=== PATIENT | male | born 1985 | race Caucasian/White ===

== ENCOUNTER 2016-05-30 16:34 | Emergency (ER) | payer OTHER ==
[2016-05-30 16:47] VITALS: BP 140/80; PULSE 80; RESP 15; TEMP 97.9; O2SAT 95
--- NOTE | 2016-05-30 17:01 | UCPHY ---
H & P Time Seen by Provider: 05/30/16 16:59 Patient Type: New HPI/ROS: CHIEF COMPLAINT: eye pain HISTORY OF PRESENT ILLNESS: The patient is a 31-year-old male who presents emergency department after sustaining right eye trauma. The patient was using a table saw cutting old. Piece of wood flew up and struck him in the right eye. He now complains of a bruise to my eye." Patient has mild blurred vision of his right eye. He has mild pain. It is slightly worse with movement. Patient describes a trailing edge in his visual field when moves his eye. No other trauma. No nausea or vomiting. REVIEW OF SYSTEMS: My complete review of systems is negative except as mentioned in the HPI. Past Medical/Surgical History: Denies Smoking Status: Never smoked Physical Exam: GENERAL: Well-appearing, in no acute distress, alert. Visual acuity: grossly intact. Face: Small abrasion over right brow. No crepitance. Eyelids: Normal inspection, everted for exam. Conjunctiva and sclera: Injected. No subconjunctival hemorrhage. No exudate. Corneas: Grossly normal. EOMs: Intact. Pupils: Right pupil is dilated. Left pupil reactive and normal. Anterior chambers: Normal inspection. No hyphema. Posterior segments: Normal funduscopic exam. Neck: No tenderness to palpation Respiratory: No respiratory distress Cardiac: Well perfused Extremities: Normal Constitutional: Initial Vital Signs Temperature (C) 36.6 C 05/30/16 16:45 Heart Rate 80 05/30/16 16:45 Respiratory Rate 15 05/30/16 16:45 Blood Pressure 140/80 H 05/30/16 16:45 O2 Sat (%) 95 05/30/16 16:45 O2 Delivery Mode Room Air Allergies/Adverse Reactions: No Known Allergies Allergy (Unverified 05/30/16 16:44) Home Medications: Medication Instructions Recorded NK [No Known Home Meds] 05/30/16 Medical Decision Making ED Course/Re-evaluation: Upon arrival, I performed initial exam of the patient's eye. I requested the patient be moved to the room with the slit lamp. While this was occurring I called Dr. Cheng from Ophthalmology. I spoke with Dr. Cheng prior to the patient be moved to the new room for slit-lamp examination. He requested the patient be sent directly to his office. He requested that I not complete eye exam with the slit lamp or fluorescein dye in order to expedite his transfer. I felt this was reasonable. I discussed this plan with the patient. His friend was present who will drive him to Dr. Cheng is office. Differential Diagnosis: My differential includes but is not limited to retinal detachment, iris injury, traumatic mydriasis, hyphema, foreign body, conjunctivitis Departure - Departure Disposition: Home, Routine, Self-Care Clinical Impression: Traumatic mydriasis Condition: Good Instructions: Eye Pain (ED) Referrals: Cruzito Cheng MD [Medical Doctor] - 05/30/16 5:01 pm - PQRS PQRS Measurement: NA
== END 2016-05-30 17:06 | disposition home or self-care (01) ==
LOC: CED 16:34
DX: H57.04 Mydriasis (principal); W22.8XXA Striking against or struck by other objects, initial encounter; Y93.89 Activity, other specified
CPT/HCPCS: 99203-PO; G0463-PO